=== PATIENT | female | born 1995 | race Two or more races ===

== ENCOUNTER 2021-08-02 15:48 | Inpatient (IN) | payer BC ==
[2021-08-02] MEDS ORDERED: Sodium Chloride 0.9% 1,000 ML IV ONE ×2 (15:53→16:00)
[2021-08-02] MEDS ORDERED: Sodium Chloride 0.9% 10 ML Syringe FLUSH PRN (15:53)
--- NOTE | 2021-08-02 16:00 | EDM.PDOC ---
ED HPI GENERAL MEDICAL PROBLEM - General Stated Complaint: HYPOXIA Time Seen by Provider: 08/02/21 15:51 Source of Information: Reports: Patient, RN Notes Reviewed - History of Present Illness INITIAL COMMENTS - FREE TEXT/NARRATIVE: Patient presents by ambulance from the [facility] for chief complaint of shortness of breath and flulike symptoms. Patient delivered a healthy baby boy proximate 1 month ago via without any complications. The this is day 8 of flulike symptoms of weakness body aches vomiting poor appetite. Last week Friday her symptoms started as a fever chills body aches weakness headache. She went to the clinic today as she has had some vomiting couple episodes of diarrhea body aches weakness shortness of breath and she was found to have SPO2 sats of 83% on room air tachycardic in the 120s short of breath weak. Patient was placed on 3 L nasal cannula and sats went up to 94%. She arrives with nonrebreather 10 L of oxygen sats 96%. Patient does appear to be short of breath and very fatigued. She has no chest pain no abdominal pain no pain around incision. Her surgical incision is healing nicely intact no swelling drainage or redness around the site. She has not been drinking/eating for the past couple days and she noticed her urine very dark and concentrated today. She was tested by rapid antigen Covid test yesterday was negative. - Related Data Allergies Allergy/AdvReac Type Severity Reaction Status Date / Time No Known Allergies Allergy Verified 08/02/21 16:57 Home Meds: Home Meds . [No Known Home Meds] 08/02/21 [History] ED ROS GENERAL - Review of Systems Review Of Systems: See Below Constitutional: Reports: Fever, Chills, Malaise, Weakness, Fatigue, Decreased Appetite HEENT: Reports: No Symptoms. Denies: Rhinitis, Throat Pain Respiratory: Reports: Shortness of Breath, Cough Cardiovascular: Reports: Dyspnea on Exertion. Denies: Chest Pain, Edema, Palpitations, Syncope GI/Abdominal: Reports: Nausea, Vomiting. Denies: Abdominal Pain : Reports: Other (Concentrated urine). Denies: Pain Musculoskeletal: Reports: No Symptoms Skin: Reports: No Symptoms. Denies: Cyanosis, Rash Neurological: Reports: Headache Psychiatric: Reports: No Symptoms Hematologic/Lymphatic: Reports: No Symptoms ED EXAM, GENERAL - Physical Exam Exam: See Below Exam Limited By: No Limitations General Appearance: Alert, WD/WN, No Apparent Distress Eye Exam: Bilateral Eye: EOMI Ears: Normal TMs Nose: Normal Inspection Throat/Mouth: Normal Inspection, Normal Lips, Normal Oropharynx, No Airway Compromise Head: Atraumatic Neck: Normal Inspection, Supple, Non-Tender Respiratory/Chest: No Respiratory Distress, Lungs Clear, Normal Breath Sounds, Chest Non-Tender. No: Crackles, Rales, Rhonchi, Wheezing Cardiovascular: Normal Peripheral Pulses, No Edema, No Gallop, No JVD, No Murmur, Tachycardia Peripheral Pulses: 2+: Radial (L), Radial (R), Posterior Tibial (L), Posterior Tibial (R), Dorsalis Pedis (L), Dorsalis Pedis (R) GI/Abdominal: Normal Bowel Sounds, Soft, Non-Tender, No Distention Back Exam: Normal Inspection, Full Range of Motion. No: CVA Tenderness (L), CVA Tenderness (R) Extremities: Normal Inspection, Normal Range of Motion, Non-Tender, No Pedal Edema, Normal Capillary Refill. No: Pedal Edema, Khanh's Sign, Leg Pain, Increased Warmth, Redness Neurological: Alert, Oriented, Normal Cognition Psychiatric: Normal Affect, Normal Mood Skin Exam: Warm, Dry, Intact, Wound/Incision (Surgical incision on her lower abdomen healing nicely intact, no redness or drainage or signs of infection.) Course - Orders/Labs/Meds Orders: Active Orders 24 hr Category Date Time Status PE Chest [Ang Chest] [CT] Stat Exams 08/02/21 15:51 Ordered LACTIC ACID [CHEM] Stat Lab 08/02/21 15:52 Ordered UA W/MICROSCOPIC [URIN] Stat Lab 08/02/21 15:59 Ordered Sodium Chloride 0.9% @ 999 MLS/HR (1000ml) Med 08/02/21 15:53 Ordered Sodium Chloride 0.9% [Normal Saline] 1,000 ml IV .BOLUS Sodium Chloride 0.9% @ 999 MLS/HR (1000ml) Med 08/02/21 16:00 Ordered Sodium Chloride 0.9% [Normal Saline] 1,000 ml IV .BOLUS Sodium Chloride 0.9% [Normal Saline] 100 ml Med 08/02/21 17:00 Active IV ASDIRECTED Sodium Chloride 0.9% [Saline Flush] Med 08/02/21 15:53 Ordered 10 ml FLUSH Q8HR PRN Saline Lock Insert [OM.PC] Routine Oth 08/02/21 15:53 Ordered Medication Orders Sodium Chloride (Normal Saline) 1,000 mls @ 999 mls/hr IV .BOLUS ONE Stop: 08/02/21 16:53 Sodium Chloride (Normal Saline) 1,000 mls @ 999 mls/hr IV .BOLUS ONE Stop: 08/02/21 17:00 Sodium Chloride (Normal Saline) 100 mls @ 200 mls/hr IV ASDIRECTED JASEN Last Admin: 08/02/21 16:50 Dose: 200 mls/hr Documented by: LY Sodium Chloride (Sodium Chloride 0.9% 10 Ml Syringe) 10 ml FLUSH Q8HR PRN PRN Reason: keep vein open Labs: Laboratory Tests 08/02/21 08/02/21 08/02/21 Range/Units 16:20 16:20 16:20 WBC 7.35 (5.00-10.00) 10^3/uL RBC 3.23 L (3.80-5.50) 10^6/uL Hgb 8.9 L (12.0-16.0) g/dL Hct 27.6 L (37.0-47.0) % MCV 85.4 (82.0-92.0) fL MCH 27.6 (27.0-31.0) pg MCHC 32.2 (32.0-36.0) g/dL RDW 13.9 (11.5-14.5) % Plt Count 332 (150-400) 10^3/uL MPV 10.0 (7.4-10.4) fL Add Manual Diff Yes Neutrophils % (Manual) 75 H (50-70) % Band Neutrophils % 10 (4-12) % Lymphocytes % (Manual) 7 L (20-40) % Atypical Lymphs % 0 Monocytes % (Manual) 5 (2-8) % Eosinophils % (Manual) 0 L (1-3) % Basophils % (Manual) 0 (0-1) % Metamyelocytes % 3 Myelocytes % 0 Platelet Estimate Increased Sodium 138 (136-145) mmol/L Potassium 3.5 (3.5-5.1) mmol/L Chloride 101 (98-107) mmol/L Carbon Dioxide 27.9 (21.0-32.0) mmol/L Anion Gap 12.6 (5-15) mmol/L BUN 9 (7-18) mg/dL Creatinine 0.52 (0.51-1.17) mg/dL Est Cr Clr Drug Dosing TNP Estimated GFR (MDRD) > 60 mL/min Glucose 112 (70-140) mg/dL Calcium 8.1 L (8.7-10.3) mg/dL Total Bilirubin 3.0 H (0.2-1.0) mg/dL AST 77 H (15-37) U/L ALT 71 H (14-63) U/L Alkaline Phosphatase 100 (46-116) U/L Troponin I High Sens 4.900 (0-51.000) pg/mL Total Protein 7.7 (6.4-8.2) g/dL Albumin 2.73 L (3.40-5.00) g/dL HCG, Qual Negative (NEGATIVE) Meds: Medications Generic Name Dose Route Start Last Admin Trade Name Freq PRN Reason Stop Dose Admin Sodium Chloride 1,000 mls @ 999 mls/hr 08/02/21 15:53 Normal Saline IV 08/02/21 16:53 .BOLUS ONE Sodium Chloride 1,000 mls @ 999 mls/hr 08/02/21 16:00 Normal Saline IV 08/02/21 17:00 .BOLUS ONE Sodium Chloride 100 mls @ 200 mls/hr 08/02/21 17:00 08/02/21 16:50 Normal Saline IV 200 mls/hr ASDIRECTED JASEN Administration Sodium Chloride 10 ml 08/02/21 15:53 Sodium Chloride 0.9% 10 Ml Syringe FLUSH Q8HR PRN keep vein open Discontinued Medications Generic Name Dose Route Start Last Admin Trade Name Freq PRN Reason Stop Dose Admin Iopamidol 75 ml 08/02/21 16:50 08/02/21 16:50 Iopamidol 755 Mg/Ml 75 Ml Bottle IVPUSH 08/02/21 16:51 75 ml ONETIME ONE Administration Ondansetron HCl Confirm 08/02/21 16:34 Ondansetron 4 Mg/2 Ml Sdv Administered 08/02/21 16:35 Dose 4 mg .ROUTE .STK-MED ONE - Re-Assessments/Exams Free Text/Narrative Re-Assessment/Exam: 08/02/21 16:05 Due to shortness of breath tachycardic hypoxia concern for a PE especially 1 month after a . Will be tested for Covid due to the antigen David test does show false negatives. Patient will be given hydration 2 L of fluid due to dehydration. Labs urine chest x-ray as well. 08/02/21 16:27 Her bedside portable chest x-ray was a viral pneumonia consistent with COVID-19. Her rapid did come back shortly after that. Patient is in the CT scan to rule out PE. Patient's oxygen saturations 93 to 94% on 6 L mask oxygen. Family and baby in the waiting room updated on plan of care. 08/02/21 17:06 Labs returned consult on-call [facility] PCP going to admit to inpatient to the hospital. Patient given 6 mg of Decadron IV push slow deluded and going to give the first dose of remdesivir 200 mg. she is on mask O2 at 10 L 99%, going to titrate down to keep saturations 94% or higher. Departure - Departure Time of Disposition: 17:07 Disposition: Admitted As Inpatient 68 Condition: Serious Clinical Impression: Hypoxia, Pneumonia due to 2019 novel coronavirus - Discharge Information *PRESCRIPTION DRUG MONITORING PROGRAM REVIEWED*: No *COPY OF PRESCRIPTION DRUG MONITORING REPORT IN PATIENT MANISH: No - My Orders Last 24 Hours: My Active Orders 08/02/21 15:51 PE Chest [Ang Chest] [CT] Stat 08/02/21 15:52 LACTIC ACID [CHEM] Stat 08/02/21 15:53 Sodium Chloride 0.9% @ 999 MLS/HR (1000ml) Sodium Chloride 0.9% [Normal Saline] 1,000 ml IV .BOLUS Sodium Chloride 0.9% [Saline Flush] 10 ml FLUSH Q8HR PRN Saline Lock Insert [OM.PC] Routine 08/02/21 15:59 UA W/MICROSCOPIC [URIN] Stat 08/02/21 16:00 Sodium Chloride 0.9% @ 999 MLS/HR (1000ml) Sodium Chloride 0.9% [Normal Saline] 1,000 ml IV .BOLUS 08/02/21 17:00 Sodium Chloride 0.9% [Normal Saline] 100 ml IV ASDIRECTED - Assessment/Plan Last 24 Hours: My Active Orders 08/02/21 15:51 PE Chest [Ang Chest] [CT] Stat 08/02/21 15:52 LACTIC ACID [CHEM] Stat 08/02/21 15:53 Sodium Chloride 0.9% @ 999 MLS/HR (1000ml) Sodium Chloride 0.9% [Normal Saline] 1,000 ml IV .BOLUS Sodium Chloride 0.9% [Saline Flush] 10 ml FLUSH Q8HR PRN Saline Lock Insert [OM.PC] Routine 08/02/21 15:59 UA W/MICROSCOPIC [URIN] Stat 08/02/21 16:00 Sodium Chloride 0.9% @ 999 MLS/HR (1000ml) Sodium Chloride 0.9% [Normal Saline] 1,000 ml IV .BOLUS 08/02/21 17:00 Sodium Chloride 0.9% [Normal Saline] 100 ml IV ASDIRECTED
--- NOTE | 2021-08-02 16:28 | CR ---
[id number] RAD/RAD Chest PA or AP 1V EXAM: SINGLE VIEW CHEST. INDICATION: SHORTNESS OF BREATH HYPOXIA COMPARISON: NO PREVIOUS SIMILAR EXAM IS AVAILABLE FINDINGS: Extensive bilateral infiltrates are seen. The patient appears to be a dialysis patient. The cardiac silhouette is enlarged. IMPRESSION: EXTENSIVE BILATERAL PNEUMONIA Florentin Romero MD 08/02/21 [id number] Thank you for allowing us to participate in the care of your patient.
[2021-08-02] MEDS ORDERED: Ondansetron 4 MG/2 ML SDV IVPUSH ONE (16:30)
[2021-08-02] MEDS ORDERED: Ondansetron 4 MG/2 ML SDV ONE (16:34)
[2021-08-02] MEDS ORDERED: Iopamidol 755 Mg/ML 75 ML Bottle IVPUSH ONE (16:50)
[2021-08-02 16:51] LABS: ANION GAP 12.6 mmol/L (5-15); CHLORIDE,CL 101 mmol/L (98-107); SODIUM,NA 138 mmol/L (136-145)
[2021-08-02] MEDS ORDERED: Sodium Chloride 0.9% 100 ML IV SCH (17:00)
[2021-08-02] MEDS ORDERED: Dexamethasone 10 MG/ML SDV IVPUSH ONE (17:04)
[2021-08-02] MEDS ORDERED: REMDESIVIR 200 MG in Sodium Chloride 0.9% 250 ML IV ONE (17:08)
[2021-08-02] MEDS ORDERED: Sodium Chloride 0.9% 1,000 ML IV SCH (23:45)
[2021-08-03] MEDS ORDERED: Albuterol/Ipratropium 3.0-0.5 MG/3 ML Neb Soln ONE (07:35)
[2021-08-03 07:39] LABS: PTT,PARTIAL THROMBOPLSTIN TIME 38.8 SEC (22.8-31.4)
[2021-08-03 07:42] LABS: ANION GAP 10.1 mmol/L (5-15); CHLORIDE,CL 107 mmol/L (98-107); SODIUM,NA 142 mmol/L (136-145)
[2021-08-03] MEDS ORDERED: Albuterol/Ipratropium 3.0-0.5 MG/3 ML Neb Soln NEB ONE (07:50)
[2021-08-03] MEDS ORDERED: Midazolam 1 MG/ML 2 ML SDV ONE ×2 (08:16→08:23)
--- NOTE | 2021-08-03 08:36 | CT ---
[id number] CT/CTA Chest EXAM: CT ANGIOGRAM CHEST INDICATION: SHORT OF BREATH, TACHYCARDIA, HYPOXIA, C SECTION ONE MONTH COMPARISON: Chest radiograph same date. DISCUSSION: No pulmonary embolus is identified, but the degree of contrast opacification of the pulmonary arteries limits assessment. There are significant areas of groundglass opacification and consolidation scattered throughout both lungs. These changes are most suggestive of infection and differential considerations include COVID 19 pneumonia. Normal heart size. No pleural or pericardial effusion. The mediastinal lymph nodes are mildly prominent in number, but not enlarged by size criteria. The imaged upper abdomen and osseous structures are unremarkable. IMPRESSION: 1. No large or central pulmonary embolism is identified. Contrast opacification limit sensitivity. 2. Significant bilateral groundglass opacities and multifocal consolidation throughout both lungs. These changes likely relate to underlying pneumonia and differential considerations include COVID 19. Donavon Lindsey MD 08/03/21 [id number] Thank you for allowing us to participate in the care of your patient.
[2021-08-03] MEDS ORDERED: Enoxaparin 60 MG/0.6 ML Syringe SUBCUT SCH (09:00)
[2021-08-03] MEDS ORDERED: Zinc (Zinc Gluconate) 50 MG Tab PO SCH (09:00)
[2021-08-03] MEDS ORDERED: Ascorbic Acid 500 MG Tab PO SCH (09:00)
[2021-08-03] MEDS ORDERED: Dexamethasone 4 MG Tab PO SCH (09:00)
[2021-08-03] MEDS ORDERED: Cholecalciferol (Vitamin D3) 25 MCG Tab PO SCH (09:00)
[2021-08-03] MEDS ORDERED: fentaNYL 250 MCG/5 ML SDV ONE (09:13)
[2021-08-03] MEDS ORDERED: Propofol 200 MG/20 ML SDV ONE ×2 (10:02→11:23)
--- NOTE | 2021-08-03 11:35 | CR ---
[id number] RAD/RAD Chest PA or AP 1V EXAM: RAD Chest PA or AP 1V INDICATION: INTUBATION. COMPARISON: August 02, 2021. DISCUSSION: Interval placement of an endotracheal tube with tip approximately 4 cm above the maryann. Low lung volumes associated vascular crowding. Increasing patchy pulmonary infiltrates seen throughout the lungs bilaterally. IMPRESSION: As above. Raleigh Marie DO 08/03/21 1134 Thank you for allowing us to participate in the care of your patient.
[2021-08-03] MEDS ORDERED: REMDESIVIR 100 MG in Sodium Chloride 0.9% 250 ML IV SCH (17:00)
--- NOTE | 2021-08-04 11:37 | PCM.HP.2 ---
H&P History of Present Illness - General Date of Service: 08/03/21 Admit Problem/Dx: Admission Diagnosis/Problem Admission Diagnosis/Problem Hypoxia - History of Present Illness Initial Comments - Free Text/Narative: Ms. Root is a 25yo s/p C/S on 07/10/21 who was seen via telemedicine visit on 08/01/21 for URI symptoms, shortness of breath, cough, fever, decreased appetite, and fatigue which started on 07/25/21. COVID antigen testing performed was negative. She then presented to the [facility] on the day of admission for concern of a UTI given symptom of dark urine. She was noted to have an oxygen saturation of 83% with pulse 120. She was started on oxygen and transported to the [facility] ED via EMS. In the ED, COVID PCR testing was positive and evaluation with CBC, CMP, and troponin was with expected abnormalities. CXR and CT chest angiogram were performed revealing evidence of COVID pneumonia and no evidence of PE. I was called for admission and accepted around 1730. Ordered to give dexamethasone 6mg IV and remdesivir 200mg IV. - Related Data Allergies/Adverse Reactions: Allergies Allergy/AdvReac Type Severity Reaction Status Date / Time No Known Allergies Allergy Verified 08/02/21 16:57 Home Medications: Home Meds . 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: Reports: Other OB/BYN History: G-1 - Infectious Disease History Infectious Disease History: Reports: None - Past Surgical History HEENT Surgical History: Reports: Oral Surgery Female Surgical History: Reports: Section Other Female Surgeries/Procedures: 07/10/2021 Social & Family History - Family History Family Medical History: No Pertinent Family History - Tobacco Use Tobacco Use Status *Q: Never Tobacco User - Caffeine Use Caffeine Use: Reports: Soda Other Caffeine Use: REGULAR DAILY - Recreational Drug Use Recreational Drug Use: No H&P Review of Systems - Review of Systems: Review Of Systems: Unable To Obtain Reason Not Obtained: intubated status Exam - Exam Exam: See Below - Vital Signs Vital Signs: Last Vital Signs Temp 36.3 C 08/03/21 06:52 Pulse 85 08/03/21 09:20 Resp 16 08/03/21 09:20 BP 98/47 L 08/03/21 09:20 Pulse Ox 96 08/03/21 09:20 Weight: 113.353 kg - Exam Physical Exam Comments:: GENERAL: Obese female lying in hospital bed intubated. HEENT: Normocephalic, atraumatic. Conjunctiva clear. Clear rhinorrhea. Mucous membranes moist. NECK: Supple, no masses. CV: Regular rate and rhythm, no murmurs, rubs, or gallops. 2+ radial pulses. PULMONARY: Normal effort, diffuse rhonchi bilaterally, no wheezes. ABDOMEN: Positive bowel sounds, soft, nontender, nondistended. EXTREMITIES: No edema, cyanosis, or clubbing. MUSCULOSKELETAL: No obvious deformity. NEUROLOGICAL: No obvious deficits. DERMATOLOGIC: No rashes or suspicious lesions in exposed areas. PSYCHIATRIC: Per VANESA Brooks, patient was answering questions appropriately prior to sedation. - Patient Data Lab Results Last 24 hrs: Laboratory Results - last 24 hr 08/03/21 Range/Units 07:00 Procalcitonin 0.07 ng/mL Result Diagrams: 08/03/21 07:00 08/03/21 07:00 Sepsis Event Note - Evaluation Sepsis Screening Result: Sepsis Risk Problem List Initiated/Reviewed/Updated: Yes Assessment/Plan Comment:: Ms. Root is a 25yo s/p C/S on 07/10/21 with history otherwise notable for obesity with BMI 41 and no prior COVID-19 vaccination who was seen via telemedicine visit on 08/01/21 for URI symptoms, shortness of breath, cough, fever, decreased appetite, and fatigue which started on 07/25/21. COVID antigen testing performed was negative. She then presented to the [facility] on the day of admission for concern of a UTI given symptom of dark urine. She was noted to have an oxygen saturation of 83% with pulse 120. She was started on oxygen and transported to the [facility] ED via EMS. In the ED, COVID PCR testing was positive and evaluation with CBC, CMP, and troponin was with expected abnormalities. CXR and CT chest angiogram were performed revealing evidence of COVID pneumonia and no evidence of PE. I was called for admission and accepted around 1730. Ordered to give dexamethasone 6mg IV and remdesivir 200mg IV. I called nursing staff to inquire about patient status around 2300 at which time she had oxygen saturations in the mid-90s on 10lpm via simple mask (for which nurse felt was partially due to significant nasal congestion and inability to maintain saturations with nasal cannula as a result) and with otherwise normal vital signs and no increased work of breathing per staff report. Verified that she was not . No calls received about patient status until approximately 0740 when call received from oncoming floor nurse with concern over patient's increased work of breathing, wheezing, and worsening hypoxia now requiring nonrebreather mask. Orders given for DuoNeb treatment, obtain ABG, prepare intubation supplies and code cart. Rounding provider Demetra Corrales APRN-ELISSA, was notified by myself and already en route to hospital and arrived for evaluation in addition to Colleen Burt CRNA, who was available for assistance. During evaluation, she had ongoing increased work of breathing at which time she stated she was seeing stars and had significant respiratory compromise so decision was made to intubate. I arrived around 0805 just after intubation. CXR obtained confirming appropriate ET tube placement. EMS was contacted and arrived with ventilator for which she was hooked up with settings of TV 800cc, RR 12, FiO2 100% initially, and PEEP 12. ABG attempted to be obtained unsuccessfully. Call to [facility] Call placed and after discussion with car storer, she was accepted for admission. After bed number assigned, patient was transferred via EMS. arrived to hospital and course and care was discussed with him. Greatly appreciate multidisciplinary teamwork in care of patient. Admission diagnoses: # Acute hypoxic respiratory failure # COVID pneumonia # Transaminitis # Hypoalbuminemia
--- NOTE | 2021-08-04 11:38 | PCM.DCSUM1 ---
Discharge Summary - Hospital Course HPI Initial Comments: Date of admission: 08/02/21 Date of discharge: 08/03/21 Admission diagnoses: # Acute hypoxic respiratory failure # COVID pneumonia # Transaminitis # Hypoalbuminemia Discharge diagnoses: # Acute hypoxic respiratory failure, requiring intubation # COVID pneumonia # Transaminitis # Hypoalbuminemia Consultations: Critical care, [facility] Procedures: 08/03/21 intubation by Colleen Burt CRNA Hospital course: Ms. Root is a 25yo s/p C/S on 07/10/21 with history otherwise notable for obesity with BMI 41 and no prior COVID-19 vaccination who was seen via telemedicine visit on 08/01/21 for URI symptoms, shortness of breath, cough, fever, decreased appetite, and fatigue which started on 07/25/21. COVID antigen testing performed was negative. She then presented to the [facility] on the day of admission for concern of a UTI given symptom of dark urine. She was noted to have an oxygen saturation of 83% with pulse 120. She was started on oxygen and transported to the ED via EMS. In the ED, COVID PCR testing was positive and evaluation with CBC, CMP, and troponin was with expected abnormalities. CXR and CT chest angiogram were performed revealing evidence of COVID pneumonia and no evidence of PE. I was called for admission and accepted around 1730. Ordered to give dexamethasone 6mg IV and remdesivir 200mg IV. I called nursing staff to inquire about patient status around 2300 at which time she had oxygen saturations in the mid-90s on 10lpm via simple mask (for which nurse felt was partially due to significant nasal congestion and inability to maintain saturations with nasal cannula as a result) and with otherwise normal vital signs and no increased work of breathing per staff report. Verified that she was not . No calls received about patient status until approximately 0740 when call received from oncoming floor nurse with concern over patient's increased work of breathing, wheezing, and worsening hypoxia now requiring nonrebreather mask. Orders given for DuoNeb treatment, obtain ABG, prepare intubation supplies and code cart. Rounding provider VANESA Brooks, was notified by myself and already en route to hospital and arrived for evaluation in addition to Colleen Burt CRNA, who was available for assistance. During evaluation, she had ongoing increased work of breathing at which time she stated she was seeing stars and had significant respiratory compromise so decision was made to intubate. I arrived around 0805 just after intubation. CXR obtained confirming appropriate ET tube placement. EMS was contacted and arrived with ventilator for which she was hooked up with settings of TV 800cc, RR 12, FiO2 100% initially, and PEEP 12. ABG attempted to be obtained unsuccessfully. Call to [facility] Call placed and after discussion with medication technician, she was accepted for admission. After bed number assigned, patient was transferred via EMS. arrived to hospital and course and care was discussed with him. Greatly appreciate multidisciplinary teamwork in care of patient. - Discharge Data Discharge Date: 08/03/21 Discharge Disposition: DC/Tfer to Acute Hospital 02 Condition: Good - Referral to Home Health Primary Care Physician: Leora Mason MD - Discharge Plan *PRESCRIPTION DRUG MONITORING PROGRAM REVIEWED*: No *COPY OF PRESCRIPTION DRUG MONITORING REPORT IN PATIENT MANISH: No Home Medications: Home Meds . [No Known Home Meds] 08/02/21 [History] - Discharge Summary/Plan Comment DC Time >30 min.: Yes Total # of Minutes for Discharge Time: 90. Independently spent 90 minutes of critical care time exclusive of any procedures. Same day admission and discharge. - Patient Data Vitals - Most Recent: Last Vital Signs Temp 36.3 C 08/03/21 06:52 Pulse 85 08/03/21 09:20 Resp 16 08/03/21 09:20 BP 98/47 L 08/03/21 09:20 Pulse Ox 96 08/03/21 09:20 Weight - Most Recent: 113.353 kg Lab Results - Last 24 hrs: Laboratory Results - last 24 hr 08/03/21 Range/Units 07:00 Procalcitonin 0.07 ng/mL Med Orders - Current: Current Medications Discontinued Medications Albuterol/Ipratropium (Albuterol/Ipratropium 3.0-0.5 Mg/3 Ml Neb Soln) Confirm Administered Dose 3 ml .ROUTE .STK-MED ONE Stop: 08/03/21 07:36 Last Admin: 08/03/21 09:02 Dose: Not Given Documented by: Albuterol/Ipratropium (Albuterol/Ipratropium 3.0-0.5 Mg/3 Ml Neb Soln) 3 ml NEB ONETIME ONE Stop: 08/03/21 07:51 Last Admin: 08/03/21 07:55 Dose: 3 ml Documented by: Ascorbic Acid (Ascorbic Acid 500 Mg Tab) 1,000 mg PO BID [facility] Last Admin: 08/03/21 12:37 Dose: Not Given Documented by: Cholecalciferol (Cholecalciferol (Vitamin D3) 25 Mcg Tab) 25 mcg PO DAILY [facility] Last Admin: 08/03/21 12:38 Dose: Not Given Documented by: Dexamethasone (Dexamethasone 10 Mg/Ml Sdv) 6 mg IVPUSH ONETIME ONE Stop: 08/02/21 17:05 Last Admin: 08/02/21 17:15 Dose: 6 mg Documented by: Dexamethasone (Dexamethasone 4 Mg Tab) 6 mg PO DAILY JASEN Stop: 08/11/21 09:01 Last Admin: 08/03/21 12:37 Dose: Not Given Documented by: Enoxaparin Sodium (Enoxaparin 60 Mg/0.6 Ml Syringe) 60 mg SUBCUT Q12H [facility] Last Admin: 08/03/21 09:25 Dose: 60 mg Documented by: Fentanyl (Fentanyl 250 Mcg/5 Ml Sdv) Confirm Administered Dose 2,000 mcg .ROUTE .STK-MED ONE Stop: 08/03/21 09:14 Last Admin: 08/03/21 12:38 Dose: Not Given Documented by: Sodium Chloride (Normal Saline) 1,000 mls @ 999 mls/hr IV .BOLUS ONE Stop: 08/02/21 16:53 Last Admin: 08/02/21 17:00 Dose: 999 mls/hr Documented by: Sodium Chloride (Normal Saline) 1,000 mls @ 999 mls/hr IV .BOLUS ONE Stop: 08/02/21 17:00 Last Admin: 08/02/21 16:08 Dose: 999 mls/hr Documented by: Sodium Chloride (Normal Saline) 100 mls @ 200 mls/hr IV ASDIRECTED [facility] Last Admin: 08/02/21 16:50 Dose: 200 mls/hr Documented by: Remdesivir 200 mg/ Sodium (Chloride) 250 mls @ 250 mls/hr IV ONETIME ONE Stop: 08/02/21 17:09 Last Admin: 08/02/21 17:55 Dose: 250 mls/hr Documented by: Remdesivir 100 mg/ Sodium (Chloride) 250 mls @ 250 mls/hr IV Q24H JASEN Stop: 08/06/21 17:01 Sodium Chloride (Normal Saline) 1,000 mls @ 125 mls/hr IV ASDIRECTED JASEN Last Admin: 08/03/21 00:53 Dose: 125 mls/hr Documented by: Fentanyl 2,000 mcg/ Sodium (Chloride) 200 mls @ 11.335 mls/hr IV TITRATE JASEN; Protocol Iopamidol (Iopamidol 755 Mg/Ml 75 Ml Bottle) 75 ml IVPUSH ONETIME ONE Stop: 08/02/21 16:51 Last Admin: 08/02/21 16:50 Dose: 75 ml Documented by: Midazolam HCl (Midazolam 1 Mg/Ml 2 Ml Sdv) Confirm Administered Dose 2 mg .ROUTE .STK-MED ONE Stop: 08/03/21 08:17 Last Admin: 08/03/21 12:37 Dose: Not Given Documented by: Midazolam HCl (Midazolam 1 Mg/Ml 2 Ml Sdv) Confirm Administered Dose 4 mg .ROUTE .STK-MED ONE Stop: 08/03/21 08:24 Last Admin: 08/03/21 12:37 Dose: Not Given Documented by: Ondansetron HCl (Ondansetron 4 Mg/2 Ml Sdv) Confirm Administered Dose 4 mg .ROUTE .STK-MED ONE Stop: 08/02/21 16:35 Last Admin: 08/02/21 17:29 Dose: Not Given Documented by: Ondansetron HCl (Ondansetron 4 Mg/2 Ml Sdv) 4 mg IVPUSH ONETIME ONE Stop: 08/02/21 16:31 Last Admin: 08/02/21 16:30 Dose: 4 mg Documented by: Propofol (Propofol 200 Mg/20 Ml Sdv) Confirm Administered Dose 1,600 mg .ROUTE .STK-MED ONE Stop: 08/03/21 10:03 Last Admin: 08/03/21 12:38 Dose: Not Given Documented by: Propofol (Propofol 200 Mg/20 Ml Sdv) Confirm Administered Dose 400 mg .ROUTE .STK-MED ONE Stop: 08/03/21 11:24 Last Admin: 08/03/21 12:38 Dose: Not Given Documented by: Sodium Chloride (Sodium Chloride 0.9% 10 Ml Syringe) 10 ml FLUSH Q8HR PRN PRN Reason: keep vein open Zinc Gluconate (Zinc (Zinc Gluconate) 50 Mg Tab) 50 mg PO DAILY JASEN Stop: 08/08/21 09:01 Last Admin: 08/03/21 12:38 Dose: Not Given Documented by:
== END 2021-08-03 09:30 | DRG 137 ==
LOC: KA.ED 15:48 → KA.MS 17:05
PROVIDERS: ADMIT Family Medicine; ATTEND Family Medicine
PROC: XW033E5 Introduction of Remdesivir Anti-infective into Peripheral Vein, Percutaneous Approach, New Technology Group 5 (ICD-10-PCS; 2021-08-02)
PROC: 3E0333Z Introduction of Anti-inflammatory into Peripheral Vein, Percutaneous Approach (ICD-10-PCS; 2021-08-02)
PROC: 0BH17EZ Insertion of Endotracheal Airway into Trachea, Via Natural or Artificial Opening (ICD-10-PCS; principal; 2021-08-03)
PROC: 3E0DX3Z Introduction of Anti-inflammatory into Mouth and Pharynx, External Approach (ICD-10-PCS; 2021-08-03)
PROC: 5A1935Z Respiratory Ventilation, Less than 24 Consecutive Hours (ICD-10-PCS; 2021-08-03)
DX: U07.1 COVID-19 (principal); J12.82 Pneumonia due to coronavirus disease 2019; J96.01 Acute respiratory failure with hypoxia; E88.09 Other disorders of plasma-protein metabolism, not elsewhere classified; R74.01 Elevation of levels of liver transaminase levels; H54.7 Unspecified visual loss
CPT/HCPCS: 31500; 36415; 51702; 71045; 71275; 80053; 82550; 83605; 83735; 84145; 84484; 84703; 85025; 85610; 85730; 86140; 96374; 99283; 99285-25; J1100; J1650; J2405; J3010; J7030; J7050; J7620-GY; Q9967; U0002